=== PATIENT | male | born 1950 | race Caucasian/White ===

== ENCOUNTER 2018-07-11 10:52 | Day surgery (SDC) | payer MEDICARE ==
[~2018-07-11] VITALS: Ht 193 cm; Wt 107.3 kg
--- NOTE | 2018-07-11 12:19 | NUR ---
07/11/18 1219 Yoko Perez PT UPDATED ON THE POTENTIAL DELAY IN HIS CASE DUE TO DELAY IN THE ANESTHESIOLOGIST. RN OFFERRED TO ADJUST THE BED AND PROVIDE WARM BLANKETS. CALL LIGHT IN REACH. NO NEEDS AT THIS TIME.
== END 2018-07-11 15:12 | disposition home or self-care (01) ==
LOC: ORSCSDS 10:52
PROVIDERS: Student in an Organized Health Care Education/Training Program
PROC: 0DBK8ZX Excision of Ascending Colon, Via Natural or Artificial Opening Endoscopic, Diagnostic (ICD-10-PCS; principal; 2018-07-11 12:15)
PROC: 0DBH8ZX Excision of Cecum, Via Natural or Artificial Opening Endoscopic, Diagnostic (ICD-10-PCS; principal; 2018-07-11 12:15)
DX: Z12.11 Encounter for screening for malignant neoplasm of colon (principal); D12.0 Benign neoplasm of cecum; D12.2 Benign neoplasm of ascending colon; I10 Essential (primary) hypertension; E78.5 Hyperlipidemia, unspecified; G47.33 Obstructive sleep apnea (adult) (pediatric)
CPT/HCPCS: 88305; J7120

== ENCOUNTER → 2020-02-05 | Outpatient (CLI) | payer MEDICARE ==
[2020-02-05 14:59] LABS: Stool Occult Bld Immuno 1 Negative (NEGATIVE)
== END | disposition home or self-care (01) ==
LOC: LAB SHORT 11:44 → LAB 11:44
PROVIDERS: Family Medicine
DX: D64.9 Anemia, unspecified (principal)
CPT/HCPCS: G0328

== ENCOUNTER 2021-09-27 10:23 | Day surgery (SDC) | payer MEDICARE ==
[~2021-09-27] VITALS: Ht 193 cm; Wt 104.2 kg
[2021-09-27] MEDS ORDERED: DUCODYL5 MG (10:35)
[2021-09-27] MEDS ORDERED: Lisinopril2.5 MG (10:35)
== END 2021-09-27 13:00 | disposition home or self-care (01) ==
LOC: ORSCSDS 10:23
PROVIDERS: Student in an Organized Health Care Education/Training Program
PROC: 0DBP8ZX Excision of Rectum, Via Natural or Artificial Opening Endoscopic, Diagnostic (ICD-10-PCS; principal; 2021-09-27 11:30)
PROC: 0DBH8ZX Excision of Cecum, Via Natural or Artificial Opening Endoscopic, Diagnostic (ICD-10-PCS; principal; 2021-09-27 11:30)
PROC: 0DBK8ZX Excision of Ascending Colon, Via Natural or Artificial Opening Endoscopic, Diagnostic (ICD-10-PCS; principal; 2021-09-27 11:30)
PROC: 0DBN8ZX Excision of Sigmoid Colon, Via Natural or Artificial Opening Endoscopic, Diagnostic (ICD-10-PCS; principal; 2021-09-27 11:30)
PROC: 0DBL8ZX Excision of Transverse Colon, Via Natural or Artificial Opening Endoscopic, Diagnostic (ICD-10-PCS; principal; 2021-09-27 11:30)
DX: Z12.11 Encounter for screening for malignant neoplasm of colon (principal); Z86.010 Personal history of colon polyps; D12.2 Benign neoplasm of ascending colon; D12.0 Benign neoplasm of cecum; D12.3 Benign neoplasm of transverse colon; D12.5 Benign neoplasm of sigmoid colon; K62.1 Rectal polyp; K64.8 Other hemorrhoids; I10 Essential (primary) hypertension; E78.5 Hyperlipidemia, unspecified; G47.33 Obstructive sleep apnea (adult) (pediatric)
CPT/HCPCS: 88305; J2704; J7040; J7120

== ENCOUNTER 2024-11-13 10:17 | Day surgery (SDC) | payer OTHER ==
[~2024-11-13] VITALS: Ht 193 cm; Wt 100.5 kg
[~2024-11-13 10:17] MED LIST: DUCODYL5 MG; Lactated Ringer's 1,000 ML IV ONE; Lisinopril2.5 MG; propofoL 50 ML IV ONE
[2024-11-13] MEDS ORDERED: HYDCHL12.5 (11:55)
[2024-11-13] MEDS ORDERED: Lactated Ringer's 1,000 ML IV ONE (12:54)
[2024-11-13 13:59] VITALS: BP 117/81
== END 2024-11-13 14:02 | disposition home or self-care (01) ==
LOC: ORSCSDS 10:17
PROVIDERS: Specialist
PROC: 0DBP8ZX Excision of Rectum, Via Natural or Artificial Opening Endoscopic, Diagnostic (ICD-10-PCS; principal; 2024-11-13 12:00)
DX: Z12.11 Encounter for screening for malignant neoplasm of colon (principal); Z86.0100 Personal history of colon polyps, unspecified; K62.1 Rectal polyp; K64.8 Other hemorrhoids; I10 Essential (primary) hypertension; E78.5 Hyperlipidemia, unspecified; G47.30 Sleep apnea, unspecified; Z79.899 Other long term (current) drug therapy
CPT/HCPCS: 88305; J2704; J7120

== ENCOUNTER → 2025-01-08 | Outpatient (CLI) | payer OTHER ==
[~2025-01-08] MED LIST changes: +HYDCHL12.5; -Lactated Ringer's 1,000 ML IV ONE; -propofoL 50 ML IV ONE
[2025-01-08 20:01] LABS: Ferritin, Serum 7.0 ng/mL (26-388); Total Iron Binding Capacity 406.0 ug/dL (250-450)
== END | disposition home or self-care (01) ==
LOC: LAB 15:03 → LAB SHORT 15:03
PROVIDERS: Family Medicine
DX: D64.9 Anemia, unspecified (principal)
CPT/HCPCS: 36415; 82728; 83540; 83550